=== PATIENT | female | born 1950 | race Caucasian/White ===

== ENCOUNTER → 2021-01-19 | Outpatient (CLI) | payer MEDICARE, OTHER ==
[~2021-01-19] MED LIST: ALEVE220 MG PO; ANTIVERT 25MG T25 MG PO; ASPIR 8181 MG PO; AUGMENTIN 875-1 EACH PO; BETAMETHASONE D60 ML TP; CALCIUM 600 +1 EAC2 PO; CLARITIN10 MG PO; DAILY VALUE1 EACH PO; DESYREL 50 MG T50 MG PO; DIAZEPAM2 MG PO; ELIQUIS5 MG PO; FLONASE 0.05% N16 GM; FLUTICASONE SPRAY; HALOBETASOL 0.05% TOP; HYDROCHLOROTH12.5 MG PO; HYDROCHLOROTHIA25 MG PO; HYDROCODON-ACE1 EAC2 PO; IBUPROFEN200 M1 PO; IPRATROPIUM 0.06%; K-DUR TAB 10 M10 MEQ PO; LEVAQUIN500 MG PO; LIPITOR TAB 2020 MG PO; LIPITOR40 MG PO; LORATADINE10 MG PO; LOSARTAN POTASS50 MG PO; METFORMIN HCL500 MG PO; NORCO 5-325 TA1 EACH PO; NYSTATIN POWDER TOP; OXYBUTYNIN CHLO15 MG PO; PAXIL30 MG PO; SINGULAIR10 MG PO; TOPROL XL50 MG PO; TRIAMCINOLONE CREAM TOP; TYLENOL 325MG325 MG PO
[2021-01-19 12:23] LABS: HEMOGLOBIN 13.5 gm/dl (12.3-15.3); RED BLOOD COUNT 4.58 M/UL (4.00-5.10)
== END ==
LOC: OPSV2 11:00
PROVIDERS: Orthopaedic Surgery
DX: Z01.818 Encounter for other preprocedural examination (principal); M17.11 Unilateral primary osteoarthritis, right knee; Z95.0 Presence of cardiac pacemaker
CPT/HCPCS: 36415; 71046; 80048; 81001; 83036; 85025; 87081; 87086; 93005

== ENCOUNTER → 2021-01-27 | Outpatient (CLI) | payer MEDICARE, OTHER | LOC: LAB 08:34 | PROVIDERS: Orthopaedic Surgery | DX: Z01.812 Encounter for preprocedural laboratory examination (principal) | CPT/HCPCS: 36415; 80048; 86850; 86900; 86901 ==

== ENCOUNTER 2021-01-28 08:19 | Day surgery (SDC) | payer MEDICARE, OTHER ==
[~2021-01-28] VITALS: Ht 149.9 cm; Wt 94.3 kg
[~2021-01-28 08:19] MED LIST changes: -HYDROCODON-ACE1 EAC2 PO
[2021-01-29 06:07] LABS: RED BLOOD COUNT 4.19 M/UL (4.00-5.10); WHITE BLOOD COUNT 14.6 K/UL (4.5-11.0)
[2021-01-29] MEDS ORDERED: HYDROCODON-ACE1 EAC2 PO (09:47)
== END 2021-01-29 13:50 | disposition home health service (06) ==
LOC: OR 08:19 → M/S 08:19 → OR 10:30 → M/S 17:21 → OR 01-29 13:50
PROVIDERS: Internal Medicine; Orthopaedic Surgery
PROC: 0SRC0J9 Replacement of Right Knee Joint with Synthetic Substitute, Cemented, Open Approach (ICD-10-PCS; principal; 2021-01-28 10:30)
PROC: 3E0T3BZ Introduction of Anesthetic Agent into Peripheral Nerves and Plexi, Percutaneous Approach (ICD-10-PCS; principal; 2021-01-28 10:30)
DX: M17.11 Unilateral primary osteoarthritis, right knee (principal); G89.18 Other acute postprocedural pain; I10 Essential (primary) hypertension; E78.5 Hyperlipidemia, unspecified; H81.09 Meniere's disease, unspecified ear; I48.91 Unspecified atrial fibrillation; I49.5 Sick sinus syndrome; F41.9 Anxiety disorder, unspecified; F32.9 Major depressive disorder, single episode, unspecified; E55.9 Vitamin D deficiency, unspecified; E66.01 Morbid (severe) obesity due to excess calories; Z68.41 Body mass index [BMI] 40.0-44.9, adult; Z20.822 Contact with and (suspected) exposure to COVID-19; Z88.4 Allergy status to anesthetic agent; Z88.5 Allergy status to narcotic agent; Z95.0 Presence of cardiac pacemaker; Z79.899 Other long term (current) drug therapy; Z79.01 Long term (current) use of anticoagulants
CPT/HCPCS: 36415; 73560; 76000; 80048; 85025; 97110-GP-CQ; 97116-GP-CQ; 97161; 97165; 97535; C1776; J0690; J1100; J2001; J2405; J2704; J2710; J2795; J3010; J7120

== ENCOUNTER → 2021-02-08 | Outpatient (CLI) | payer MEDICARE, OTHER ==
[~2021-02-08] MED LIST changes: +HYDROCODON-ACE1 EAC2 PO
[2021-02-08 11:12] LABS: HEMOGLOBIN 13.8 gm/dl (12.3-15.3); RED BLOOD COUNT 4.42 M/UL (4.00-5.10); WHITE BLOOD COUNT 10.4 K/UL (4.5-11.0)
== END ==
LOC: LAB 10:04
PROVIDERS: Internal Medicine
DX: I48.91 Unspecified atrial fibrillation (principal); S89.90XA Unspecified injury of unspecified lower leg, initial encounter
CPT/HCPCS: 36415; 84132; 85025

== ENCOUNTER → 2021-02-24 | Outpatient (CLI) | payer MEDICARE, OTHER | LOC: LAB 09:03 | PROVIDERS: Internal Medicine Nephrology | DX: N18.2 Chronic kidney disease, stage 2 (mild) (principal) | CPT/HCPCS: 36415; 80053; 82570; 84156 ==

== ENCOUNTER → 2021-03-29 | Outpatient (CLI) | payer MEDICARE, OTHER ==
[2021-03-29 12:26] LABS: HEMOGLOBIN 13.2 gm/dl (12.3-15.3); RED BLOOD COUNT 4.45 M/UL (4.00-5.10); WHITE BLOOD COUNT 9.2 K/UL (4.5-11.0)
== END ==
LOC: EROP 11:10
PROVIDERS: Internal Medicine Nephrology
DX: R73.9 Hyperglycemia, unspecified (principal); E78.5 Hyperlipidemia, unspecified; E55.9 Vitamin D deficiency, unspecified; I10 Essential (primary) hypertension; E87.6 Hypokalemia
CPT/HCPCS: 36415; 80053; 80061; 82570; 82607; 84156; 84439; 84443; 85025; 85027

== ENCOUNTER → 2021-09-29 | Outpatient (CLI) | payer MEDICARE, OTHER ==
[2021-09-29 10:21] LABS: HEMOGLOBIN 13.5 gm/dl (12.3-15.3); RED BLOOD COUNT 4.44 M/UL (4.00-5.10)
== END ==
LOC: LAB 09:37
PROVIDERS: Nurse Practitioner Family
DX: E78.5 Hyperlipidemia, unspecified (principal); I10 Essential (primary) hypertension; R73.03 Prediabetes; E55.9 Vitamin D deficiency, unspecified
CPT/HCPCS: 36415; 80053; 80061; 82570; 82607; 83036; 84156; 84439; 84443; 85025

== ENCOUNTER → 2022-02-22 | Outpatient (CLI) | payer MEDICARE, OTHER | LOC: KOH-I 09:14 | DX: R10.31 Right lower quadrant pain (principal) | CPT/HCPCS: 74176 ==